=== PATIENT | female | born 1985 | race Caucasian/White ===

== ENCOUNTER 2016-08-16 11:38 | Emergency (ER) | payer BC ==
[2016-08-16 12:30] LABS: Appearance,Urine Clear (Clear); Bilirubin,Urine Negative (Negative); Glucose,Urine (UA) Negative (Negative); Ketones,Urine Negative (Negative); Leukocyte Esterase,Urine Negative (Negative); Nitrite,Urine Negative (Negative); PH, Urine 7.5 (5.0-8.0); Protein,Urine Negative (Negative); Specific Gravity,Urine 1.003 (1.001-1.035); UA Billing (MACRO vs. MICRO) CHEM; Urobilinogen,Urine <2.0 mg/dL (<2.0)
[2016-08-16] MEDS ORDERED: SODIUM CHLORIDE 0.9% 1,000 ML IV STA ×4 (13:23→18:09)
[2016-08-16 13:33] LABS: Glucose,Whole Blood 80 mg/dL (75-99)
--- NOTE | 2016-08-16 13:44 | ED ---
General Adult HPI - General Chief complaint: Recheck/Abnormal Lab/Rx Stated complaint: Feels like passing out/19wks Time Seen by Provider: 08/16/16 13:07 Source: patient, RN notes reviewed Mode of arrival: ambulatory Limitations: no limitations - History of Present Illness Initial comments: Patient is a G2, P1 30-year-old female who is 19 weeks by a son, who presents emergency room today with a chief complaint feeling lightheaded earlier today. She does admit that she was at work sitting at her desk. She states that she began feeling a numbness sensation to her left hand and right foot. She states that she noticed that she began feeling somewhat lightheaded. She states she had a strange feeling to her throat where she felt like it was closing on her. She states symptoms seem to be improving she's been here to the emergency room. She states her is no new medications. No new foods or contacts that she is aware of. Patient states never had similar symptoms in the past. Patient denies any other complaints currently. Patient denies any recent fever, chills, shortness of breath, chest pain, back pain, abdominal pain , nausea or vomiting, dysuria or hematuria, constipation or diarrhea, visual changes, or any other complaints. - Related Data Home Medications Medication Instructions Recorded Confirmed Pediatric Multivit Comb #25/FA 2 tab PO DAILY 08/16/16 08/16/16 [Flintstones Multivit Chew Tab] Sertraline HCl [Zoloft] 25 mg PO HS 08/16/16 08/16/16 Previous Rx's Medication Instructions Recorded Meclizine [Antivert] 25 mg PO DAILY 10 Days 08/16/16 Allergies Allergy/AdvReac Type Severity Reaction Status Date / Time tramadol Allergy Unknown Verified 08/16/16 13:07 Review of Systems ROS Statement: Those systems with pertinent positive or pertinent negative responses have been documented in the HPI. ROS Other: All systems not noted in ROS Statement are negative. Past Medical History Past Medical History: No Reported History Additional Past Medical History / Comment(s): headaches History of Any Multi-Drug Resistant Organisms: None Reported Additional Past Surgical History / Comment(s): breast reduction Past Psychological History: No Psychological Hx Reported Smoking Status: Never smoker Past Alcohol Use History: Occasional Past Drug Use History: None Reported General Exam - General Exam Comments Initial Comments: General: The patient is awake and alert, in no distress, and does not appear acutely ill. Eye: Pupils are equal, round and reactive to light, extra-ocular movements are intact. No nystagmus. There is normal conjunctiva bilaterally. No signs of icterus. Ears, nose, mouth and throat: There are moist mucous membranes and no oral lesions. Neck: The neck is supple, there is no tenderness or JVD. Cardiovascular: There is a regular rate and rhythm. No murmur, rub or gallop is appreciated. Respiratory: Lungs are clear to auscultation, respirations are non-labored, breath sounds are equal. No wheezes, stridor, rales, or rhonchi. Gastrointestinal: Soft, non-distended, non-tender abdomen without masses or organomegaly noted. There is no rebound or guarding present. No CVA tenderness. Bowel sounds are unremarkable. Musculoskeletal: Normal ROM, no tenderness. Strength 5/5. Sensation intact. Pulses equal bilaterally 2+. Neurological: A&O x 3. CN II-XII intact, There are no obvious motor or sensory deficits. Coordination appears grossly intact. Speech is normal. Normal finger nose test. Normal rapid alternating movements. Strength 5/5 bilaterally both upper and lower extremity's. Skin: Skin is warm and dry and no rashes or lesions are noted. Psychiatric: Cooperative, appropriate mood & affect, normal judgment. Limitations: no limitations Course Vital Signs 08/16/16 08/16/16 08/16/16 12:10 13:55 14:00 Temperature 98.9 F Pulse Rate 92 80 76 Respiratory 17 16 18 Rate Blood Pressure 131/77 101/65 91/62 O2 Sat by Pulse 99 100 100 Oximetry 08/16/16 08/16/16 08/16/16 14:30 15:04 17:00 Temperature Pulse Rate 78 68 88 Respiratory 18 16 16 Rate Blood Pressure 88/53 93/58 99/61 O2 Sat by Pulse 100 100 100 Oximetry 08/16/16 08/16/16 18:02 19:21 Temperature Pulse Rate 82 72 Respiratory 16 16 Rate Blood Pressure 95/58 102/59 O2 Sat by Pulse 99 100 Oximetry Medical Decision Making - Medical Decision Making The patient reexamined at this time shows no signs of distress. Patient's labs been reviewed. Patient was given both potassium and magnesium here in the emergency room as her lab values weren't lower end of normal. This did make some improvement with her symptoms. She states she is feeling better here in the emergency room after Antivert. She states that the symptoms seem to be worse when she rotates her head to the left and right. Case was discussed and seen by attending physician Dr. Harris. He did discuss case with her [facility] Dr. Wylie states she can follow-up the office with him. She does admit that she has a scheduled appointment next week. She is advised to call the office tomorrow to see if they need to move his appointment up. Patient heart tones 140s here in the emergency room. No vaginal bleeding or discharge. At this time patient will be discharged home. She states understanding and is in agreement. Patient advised return if any symptoms increase worsen or for any other concerns. - Lab Data Result diagrams: 08/16/16 13:45 08/16/16 13:45 Lab Results 08/16/16 08/16/16 08/16/16 Range/Units 12:15 13:32 13:45 WBC 6.4 (3.8-10.6) k/uL RBC 3.64 L (3.80-5.40) m/uL Hgb 11.8 (11.4-16.0) gm/dL Hct 33.9 L (34.0-46.0) % MCV 93.1 (80.0-100.0) fL MCH 32.6 (25.0-35.0) pg MCHC 35.0 (31.0-37.0) g/dL RDW 13.3 (11.5-15.5) % Plt Count 230 (150-450) k/uL Neutrophils % 73 % Lymphocytes % 20 % Monocytes % 4 % Eosinophils % 1 % Basophils % 0 % Neutrophils # 4.7 (1.3-7.7) k/uL Lymphocytes # 1.3 (1.0-4.8) k/uL Monocytes # 0.3 (0-1.0) k/uL Eosinophils # 0.1 (0-0.7) k/uL Basophils # 0.0 (0-0.2) k/uL Sodium (137-145) mmol/L Potassium (3.5-5.1) mmol/L Chloride (98-107) mmol/L Carbon Dioxide (22-30) mmol/L Anion Gap mmol/L BUN (7-17) mg/dL Creatinine (0.52-1.04) mg/dL Est GFR (MDRD) Af Amer (>60 ml/min/1.73 sqM) Est GFR (MDRD) Non-Af (>60 ml/min/1.73 sqM) Glucose (74-99) mg/dL POC Glucose (mg/dL) 80 (75-99) mg/dL POC Glu Labor Utilization Superintendent ID Izzy German Calcium (8.4-10.2) mg/dL Magnesium (1.6-2.3) mg/dL Total Bilirubin (0.2-1.3) mg/dL AST (14-36) U/L ALT (9-52) U/L Alkaline Phosphatase (38-126) U/L Total Protein (6.3-8.2) g/dL Albumin (3.5-5.0) g/dL Urine Color Light Yellow Urine Appearance Clear (Clear) Urine pH 7.5 (5.0-8.0) Ur Specific Outlook 1.003 (1.001-1.035) Urine Protein Negative (Negative) Urine Glucose (UA) Negative (Negative) Urine Ketones Negative (Negative) Urine Blood Negative (Negative) Urine Nitrate Negative (Negative) Urine Bilirubin Negative (Negative) Urine Urobilinogen <2.0 (<2.0) mg/dL Ur Leukocyte Esterase Negative (Negative) 08/16/16 08/16/16 Range/Units 13:45 13:45 WBC (3.8-10.6) k/uL RBC (3.80-5.40) m/uL Hgb (11.4-16.0) gm/dL Hct (34.0-46.0) % MCV (80.0-100.0) fL MCH (25.0-35.0) pg MCHC (31.0-37.0) g/dL RDW (11.5-15.5) % Plt Count (150-450) k/uL Neutrophils % % Lymphocytes % % Monocytes % % Eosinophils % % Basophils % % Neutrophils # (1.3-7.7) k/uL Lymphocytes # (1.0-4.8) k/uL Monocytes # (0-1.0) k/uL Eosinophils # (0-0.7) k/uL Basophils # (0-0.2) k/uL Sodium 137 (137-145) mmol/L Potassium 3.9 (3.5-5.1) mmol/L Chloride 106 (98-107) mmol/L Carbon Dioxide 24 (22-30) mmol/L Anion Gap 7 mmol/L BUN 6 L (7-17) mg/dL Creatinine 0.52 (0.52-1.04) mg/dL Est GFR (MDRD) Af Amer >60 (>60 ml/min/1.73 sqM) Est GFR (MDRD) Non-Af >60 (>60 ml/min/1.73 sqM) Glucose 78 (74-99) mg/dL POC Glucose (mg/dL) (75-99) mg/dL POC Glu Labor Utilization Superintendent ID Calcium 8.8 (8.4-10.2) mg/dL Magnesium 1.9 (1.6-2.3) mg/dL Total Bilirubin 0.3 (0.2-1.3) mg/dL AST 23 (14-36) U/L ALT 37 (9-52) U/L Alkaline Phosphatase 39 (38-126) U/L Total Protein 6.3 (6.3-8.2) g/dL Albumin 3.5 (3.5-5.0) g/dL Urine Color Urine Appearance (Clear) Urine pH (5.0-8.0) Ur Specific Outlook (1.001-1.035) Urine Protein (Negative) Urine Glucose (UA) (Negative) Urine Ketones (Negative) Urine Blood (Negative) Urine Nitrate (Negative) Urine Bilirubin (Negative) Urine Urobilinogen (<2.0) mg/dL Ur Leukocyte Esterase (Negative) Disposition Clinical Impression: Lightheaded Disposition: HOME SELF-CARE Condition: Good Instructions: Lightheadedness (ED) Additional Instructions: Please use meclizine as prescribed and follow-up with the [facility] over the next 2 days as discussed. Please return here to the emergency room if any symptoms increase worsen or for any other concerns. Prescriptions: Meclizine [Antivert] 25 mg PO DAILY 10 Days Referrals: Laurent Forte MD [Primary Care Provider] - 1-2 days Juan Antonio Dozier MD [STAFF PHYSICIAN] - 1-2 days Time of Disposition: 19:31
[2016-08-16 14:17] LABS: Basophils % (A) 0 %; CHCM 35.7; Eosinophils # (A) 0.1 k/uL (0-0.7); Eosinophils % (A) 1 %; HCT 33.9 % (34.0-46.0); HDW 2.65; HGB 11.8 gm/dL (11.4-16.0); Luc # (Auto) 0.05; Luc % (Auto) 1; Lymphocytes # (A) 1.3 k/uL (1.0-4.8); Lymphocytes % (A) 20 %; MCH 32.6 pg (25.0-35.0); MCV 93.1 fL (80.0-100.0); Monocytes # (A) 0.3 k/uL (0-1.0); Monocytes % (A) 4 %; Neutrophils # (A) 4.7 k/uL (1.3-7.7); Neutrophils % (A) 73 %; RBC 3.64 m/uL (3.80-5.40); RDW 13.3 % (11.5-15.5); WBC 6.4 k/uL (3.8-10.6); WBC (Perox) 7.13
[2016-08-16 14:27] LABS: ALT 37 U/L (9-52); AST 23 U/L (14-36); Alkaline Phosphatase 39 U/L (38-126); Anion Gap 7 mmol/L; Blood Urea Nitrogen 6 mg/dL (7-17); Calcium 8.8 mg/dL (8.4-10.2); Carbon Dioxide 24 mmol/L (22-30); Chloride 106 mmol/L (98-107); Glucose 78 mg/dL (74-99); Non-African American GFR(MDRD) >60 (>60 ml/min/1.73 sqM); Potassium 3.9 mmol/L (3.5-5.1); Sodium 137 mmol/L (137-145); Total Bilirubin 0.3 mg/dL (0.2-1.3); Total Protein 6.3 g/dL (6.3-8.2)
[2016-08-16 15:05] VITALS: RESP 16
[2016-08-16] MEDS ORDERED: MAGNESIUM SULFATE-D5W PMX 1 GM in DEXTROSE/WATER 1 100ML.BAG IVPB ONE (16:25)
[2016-08-16] MEDS ORDERED: POTASSIUM CHLORIDE ER 20 MEQ TAB.ER PO STA (18:08)
[2016-08-16] MEDS ORDERED: MECLIZINE 12.5 MG TAB PO STA (18:21)
[2016-08-16 19:57] VITALS: BP 107/67; PULSE 89; TEMP 97.6
== END 2016-08-16 19:52 | disposition home or self-care (01) ==
LOC: EC 11:38
DX: O26.892 Other specified pregnancy related conditions, second trimester (principal); R42 Dizziness and giddiness; Z3A.19 19 weeks gestation of pregnancy; Z79.899 Other long term (current) drug therapy
CPT/HCPCS: 36415; 93005; 80053; 83735; 85025; 81003; 87086; 99284; 96365; 96361; J3475

== ENCOUNTER 2017-01-03 06:15 | Inpatient (IN) | payer BC ==
[2017-01-03] MEDS ORDERED: TERBUTALINE 1 MG/ML VIAL SQ PRN (06:44)
[2017-01-03] MEDS ORDERED: METHYLERGONOVINE 0.2 MG/ML 1 ML AMP IM PRN (06:44)
[2017-01-03] MEDS ORDERED: LIDOCAINE 1% (PF) 10 MG/ML (30 ML SDV) SQ PRN (06:44)
[2017-01-03] MEDS ORDERED: CARBOPROST TROMETHAMINE 250 MCG/ML 1 ML AMP IM PRN (06:44)
[2017-01-03] MEDS ORDERED: OXYTOCIN 10 UNIT/ML 1 ML VIAL IM PRN (06:44)
[2017-01-03] MEDS ORDERED: OXYTOCIN 20 UNITS/1000 ML NS 1,000 ML IV SCH (06:45)
[2017-01-03 06:50] VITALS: BMI 29.5
[2017-01-03 06:51] LABS: Basophils % (A) 0 %; CH 34.4; Eosinophils # (A) 0.2 k/uL (0-0.7); Eosinophils % (A) 3 %; HCT 35.9 % (34.0-46.0); HDW 2.94; HGB 12.7 gm/dL (11.4-16.0); Luc # (Auto) 0.09; Luc % (Auto) 1; Lymphocytes # (A) 1.8 k/uL (1.0-4.8); Lymphocytes % (A) 27 %; MCH 33.2 pg (25.0-35.0); MCHC 35.5 g/dL (31.0-37.0); MCV 93.4 fL (80.0-100.0); Monocytes # (A) 0.3 k/uL (0-1.0); Monocytes % (A) 4 %; Neutrophils # (A) 4.2 k/uL (1.3-7.7); Neutrophils % (A) 64 %; RBC 3.84 m/uL (3.80-5.40); RDW 13.1 % (11.5-15.5); WBC 6.5 k/uL (3.8-10.6); WBC (Perox) 7.03
[2017-01-03] MEDS: LACTATED RINGERS 1,000 ML IV SCH ×2 (07:10→13:31)
[2017-01-03] MEDS ORDERED: BUTORPHANOL 1 MG/ML 1 ML VIAL IV PRN (08:40)
--- NOTE | 2017-01-03 08:40 | P.HPOB ---
History of Present Illness H&P Date: 01/03/17 Chief Complaint: 39-3/7 weeks, elective induction The patient is a 31-year-old 3 para 1011 admitted at 39-3/7 weeks as established by last menstrual period and confirmed by 19 week ultrasound. She is admitted for elective induction with all signs reassuring and a favorable cervix. Her has been entirely uncomplicated and group B strep status is negative. Obstetrical history 3 para 1011 with 1 term vaginal delivery without complications she also had one early miscarriage not requiring D&C. Laboratory workup demonstrates a blood type of A+ with a negative antibody screen. Rubella status is immune. All other laboratory workup was within normal limits. One hour Glucola was normal and group B strep status is negative. Gynecologic history is unremarkable with no history of any infections to include STDs. Review of Systems Review of systems is confined to history of present illness. Past Medical History Past Medical History: Asthma Additional Past Medical History / Comment(s): headaches History of Any Multi-Drug Resistant Organisms: None Reported Additional Past Surgical History / Comment(s): breast reduction Past Anesthesia/Blood Transfusion Reactions: No Reported Reaction Past Psychological History: Anxiety Smoking Status: Never smoker Past Alcohol Use History: Occasional Past Drug Use History: None Reported - Past Family History Father History Unknown: Yes Medications and Allergies Home Medications Medication Instructions Recorded Confirmed Type Pedi Multivit No.25/Folic Acid 2 tab PO DAILY 08/16/16 01/03/17 History [Flintstones Multivit Chew Tab] Sertraline HCl [Zoloft] 25 mg PO HS 08/16/16 01/03/17 History Allergies Allergy/AdvReac Type Severity Reaction Status Date / Time tramadol Allergy Unknown Verified 01/03/17 06:41 Exam - Vital Signs Vital signs: Vital Signs Temp Pulse Resp Pulse Ox 01/03/17 06:40 99.1 F 99 18 98 Intake and Output 01/02/17 01/03/17 01/03/17 22:59 06:59 14:59 Other: Weight 75.75 kg In general, this is a well-developed, well-nourished white female in no acute distress. Her heart has a regular rhythm and rate without murmur. Her lungs are clear to auscultation bilaterally in all mascorro. Her abdomen is gravid, nondistended, has normal active bowel sounds, is soft, nontender, and without any palpable masses aside from uterine fundus. Her extremities are without any cyanosis, clubbing, or edema and are nontender to palpation bilaterally. Digital cervical examination demonstrates her cervix to be 2-3 cm dilated, 50% effaced, the vertex in presentation at -2 station. Artificial rupture of membranes is carried out demonstrating clear fluid. Results Result Diagrams: 01/03/17 06:40 Assessment and Plan (1) Term Status: Acute Plan: The patient has been admitted for elective induction of labor. She is aware of the potential slightly increased risk for delivery under elective circumstances. Pitocin augmentation has been started and she has undergone artificial rupture of membranes Chapis she will continue to have close maternal and surveillance and expectant management will be practiced. She is a good candidate for either IV or epidural analgesia, whichever she may choose.
[2017-01-03] MEDS ORDERED: fentaNYL (PF) 50 MCG/ML 5 ML AMP ONE (13:01)
[2017-01-03] MEDS ORDERED: SODIUM CHLORIDE 0.9% 100 ML BAG ONE (13:01)
[2017-01-03] MEDS ORDERED: BUPIVACAINE (PF) 0.25% 30 ML VIAL ONE (13:01)
[2017-01-03] MEDS ORDERED: ACETAMINOPHEN TAB 325 MG TAB PO PRN (17:08)
[2017-01-03] MEDS ORDERED: diphenhydrAMINE 50 MG/ML 1 ML VIAL IVP PRN ×2 (17:08)
[2017-01-03] MEDS ORDERED: BENZOCAINE SPRAY 57GM TOPICAL PRN (17:08)
[2017-01-03] MEDS ORDERED: diphenhydrAMINE 25 MG CAP PO PRN (17:08)
[2017-01-03] MEDS ORDERED: ZOLPIDEM 5 MG TAB PO PRN (17:08)
[2017-01-03] MEDS ORDERED: Acetaminophen-Codeine 300-30mg TAB PO PRN (17:08)
[2017-01-03] MEDS ORDERED: WITCH HAZEL 1 EACH MED..PAD TOPICAL PRN (17:08)
[2017-01-03] MEDS ORDERED: diphenhydrAMINE 50 MG CAP PO PRN (17:08)
[2017-01-03] MEDS ORDERED: SIMETHICONE 80 MG CHEWABLE PO PRN (17:08)
[2017-01-03] MEDS ORDERED: HYDROCORTISONE 2.5% RECTAL CREAM 30 GM TUBE RECTAL PRN (17:08)
[2017-01-03] MEDS ORDERED: LANOLIN CREAM 5 GM TUBE TOPICAL PRN (17:08)
[2017-01-03] MEDS ORDERED: DIPH,PERTUS(ACELL)TETVAC-LF 0.5 ML VIAL IM ONE (17:09)
--- NOTE | 2017-01-03 17:12 | P.PROBDLV ---
Vaginal Delivery Note - . Vaginal Delivery Note: The patient is a 31-year-old 3 para 1011 admitted at 39-3/7 weeks for an elective induction of labor. She is admitted after an uncomplicated and with all signs reassuring. Her group B strep status is negative. On labor and delivery, she had Pitocin started followed by artificial rupture member is clear fluid. She made fairly rapid progress through the active phase of labor and progressed to complete. She pushed over the course of approximately 1 hour and 30 minutes to a normal spontaneous vaginal delivery of a viable 7 lbs. 13 oz. baby boy with Apgars of 9 at 1 minute and 9 at 5 minutes delivered in the direct occiput posterior position with nearly a brow presentation. The placenta was delivered spontaneously, intact, and grossly normal with a grossly normal three-vessel cord inserted approximately 5-6 cm from the margin of the placenta. There was a small accessory lobe present as well. A second degree midline episiotomy had been cut for the delivery and was repaired in standard fashion using 3-0 chromic catgut without difficulty. Estimated blood loss for the case was approximately 200 mL. There were no complications. All sponge, instrument, and needle counts were correct. Both mother and infant are resting comfortably in recovery.
[2017-01-03] MEDS: IBUPROFEN 600 MG TAB PO PRN (19:28)
[2017-01-03] MEDS: SENNOSIDES-DOCUSATE SODIUM 1 EACH TAB PO SCH (21:41)
[2017-01-03] MEDS: Acetaminophen-Codeine 300-30mg TAB PO PRN (21:42)
[2017-01-04] MEDS: Acetaminophen-Codeine 300-30mg TAB PO PRN (05:00)
[2017-01-04] MEDS: LACTATED RINGERS 1,000 ML IV SCH (05:09)
--- NOTE | 2017-01-04 08:49 | P.DS ---
Providers Date of admission: 01/03/17 06:29 Expected date of discharge: 01/04/17 Attending physician: Juan Antonio Dozier Primary care physician: Stated None - Discharge Diagnosis(es) (1) Term Current Visit: Yes Status: Acute (2) Normal spontaneous vaginal delivery Current Visit: Yes Status: Acute Hospital Course: The patient is a 31-year-old 3 para 1011 admitted at 39-3/7 weeks for elective induction. She is admitted with an uncomplicated and all signs reassuring. Group B strep status is negative. On labor and delivery, she had Pitocin started and underwent artificial rupture of membranes demonstrating clear fluid. She had an epidural catheter placed the onset of the active phase of labor. She made fairly steady progress through the active phase of labor to complete and then pushed to a normal spontaneous vaginal delivery of a viable 7 lbs. 13 oz. baby boy with Apgars of 9 at 1 minute and 9 at 5 minutes. Her course was unremarkable vital signs remaining stable and her temperature was afebrile throughout. She was deemed stable for discharge by day #1 was discharged home to follow-up in the office in 6 weeks' time routinely. Discharge instructions included calling for any significantly increased bleeding or foul-smelling lochia, significantly increased fever or abdominal pain, perineal complaints, breast complaints, or anything else that concerned her. She was additionally instructed to have nothing in the vagina for at least 6 weeks time to include intercourse. She understood her instructions and agrees to follow up as noted above. Discharge medications included continued vitamins as she has opted to breast- feed. She otherwise was to use [id number] analgesic pain medications as needed. Maternal blood type is A+ and rubella status is immune. Procedures: #1. Pitocin induction #2. Artificial rupture of membranes #3. Epidural analgesia #4. Normal spontaneous vaginal delivery #5. Second-degree midline episiotomy and repair Patient Condition at Discharge: Good Plan - Discharge Summary New Discharge Prescriptions: No Action Sertraline HCl [Zoloft] 25 mg PO HS Pedi Multivit No.25/Folic Acid [Flintstones Multivit Chew Tab] 2 tab PO DAILY Discharge Medication List Pedi Multivit No.25/Folic Acid [Flintstones Multivit Chew Tab] 2 tab PO DAILY [History] Sertraline HCl [Zoloft] 25 mg PO HS 08/16/16 [History] Follow up Appointment(s)/Referral(s): Juan Antonio Dozier MD [STAFF PHYSICIAN] - 6 Weeks Discharge Disposition: HOME SELF-CARE
[2017-01-04] MEDS: SENNOSIDES-DOCUSATE SODIUM 1 EACH TAB PO SCH (09:03)
[2017-01-04] MEDS: IBUPROFEN 600 MG TAB PO PRN (09:04)
[2017-01-04 09:19] VITALS: RESP 20
[2017-01-04 16:46] VITALS: BP 95/55; PULSE 91; TEMP 97.9
== END 2017-01-04 19:10 | disposition home or self-care (01) | DRG 775 ==
LOC: 4FBP 06:29
PROVIDERS: ADMIT Obstetrics & Gynecology; ATTEND Obstetrics & Gynecology
PROC: 10E0XZZ Delivery of Products of Conception, External Approach (ICD-10-PCS; principal; 2017-01-03)
PROC: 0KQM0ZZ Repair Perineum Muscle, Open Approach (ICD-10-PCS; 2017-01-03)
PROC: 10907ZC Drainage of Amniotic Fluid, Therapeutic from Products of Conception, Via Natural or Artificial Opening (ICD-10-PCS; 2017-01-03)
PROC: 3E033VJ Introduction of Other Hormone into Peripheral Vein, Percutaneous Approach (ICD-10-PCS; 2017-01-03)
PROC: 3E0234Z Introduction of Serum, Toxoid and Vaccine into Muscle, Percutaneous Approach (ICD-10-PCS; 2017-01-03)
PROC: 3E0S3NZ Introduction of Analgesics, Hypnotics, Sedatives into Epidural Space, Percutaneous Approach (ICD-10-PCS; 2017-01-03)
DX: O70.1 Second degree perineal laceration during delivery (principal); Z37.0 Single live birth; O99.344 Other mental disorders complicating childbirth; F41.9 Anxiety disorder, unspecified; O32.3XX0 Maternal care for face, brow and chin presentation, not applicable or unspecified; J45.909 Unspecified asthma, uncomplicated; O99.52 Diseases of the respiratory system complicating childbirth; O43.193 Other malformation of placenta, third trimester; Z3A.39 39 weeks gestation of pregnancy; Z79.899 Other long term (current) drug therapy; Z88.5 Allergy status to narcotic agent; Z23 Encounter for immunization
CPT/HCPCS: 85025; 88307; 90715

== ENCOUNTER 2019-09-18 11:47 | Outpatient (CLI) | payer BC ==
[2019-09-18 13:30] VITALS: BP 113/75; PULSE 104; RESP 16; TEMP 98.6
--- NOTE | 2019-10-06 11:32 | P.MSEPDOC ---
Presenting Problems - Arrival Data Date of Arrival on Unit: 09/18/19 Time of Arrival on Unit: 11:48 Mode of Transport: Ambulatory - Complaint OB-Reason for Admission/Chief Complaint: Headache Comment: pt arrived c/o a migrane H/A SINCE LAST NIGHT PT STATES SHE TOOK SOME TYLENOL LAST NIGHT AND PT STATES h/a is LESS INTENSE AT THIS TIME Medical History - Information : 3 Para: 2 Term: 2 : 0 Abortions: Spontaneous or Elective: 0 Number of Living Children: 2 - Gestational Age Gestational Age by RAFA (wks/days): 26 Weeks and 3 Days Review of Systems - Review of Systems Constitutional: No problems Breast: No problems ENT: No problems Cardiovascular: No problems Respiratory: No problems Gastrointestinal: No problems Genitourinary: No problems Musculoskeletal: No problems Neurological: No problems Skin: No problems Vital Signs - Temperature Temperature: 98.6 F Temperature Source: Oral - Pulse Right Brachial Pulse Rate: 104 Pulse Assessment Method: Automatic Cuff - Respirations Respiratory Rate: 16 Oxygen Delivery Method: Room Air - Blood Pressure Right Arm Blood Pressure: 113/75 Blood Pressure Mean: 87 Blood Pressure Source: Automatic Cuff Medical Screen Scoring (Pre) - Cervical Exam Dilation: Exam Deferred Effacement: Exam Deferred Membranes: Intact - Uterine Contractions Frequency: N/A Duration: N/A Intensity: N/A - Maternal Vital Signs Maternal Temperature: N/A Maternal Blood Pressure: N/A Signs of Preeclampsia: Headache = 1, Visual Disturbance = 1 Maternal Respirations: N/A - Maternal Trauma Maternal Trauma: N/A - Assessment - Baby A Baseline FHR: 140 Heart Rate - NICHD Category: Category I (Normal) = 0 NST: Reactive Position: N/A - Total Score - Baby A Total Score - Baby A: 2 - Total Score - Baby B Total Score - Baby B: 2 - Total Score - Baby C Total Score - Baby C: 2 - Level of Risk - Baby A Level of Risk - Baby A: Low (0-5) - Level of Risk - Baby B Level of Risk - Baby B: Low (0-5) - Level of Risk - Baby C Level of Risk - Baby C: Low (0-5) Physician Notification (Pre) - Physician Notified Physician Notified Date: 09/18/19 Physician Notified Time: 13:03 New Order Received: Yes - Notification Comment Comment: MAY DISCHARGE TO HOME WITH INSTRUCTIONS Disposition - Disposition OB Disposition: Discharge to home Discharge Date: 09/18/19 Discharge Time: 13:21 I agree with the RN Medical Screening Exam: Yes Risk & Benefit of care provided described in d/c instruction: Yes Diagnosis: RELATED CONDITIONS, UNSPECIFIED, SECOND TRIMESTER
== END 2019-09-18 13:21 | disposition home or self-care (01) ==
LOC: FBPOP 11:47
PROVIDERS: ATTEND Obstetrics & Gynecology
DX: O26.92 Pregnancy related conditions, unspecified, second trimester (principal); Z3A.26 26 weeks gestation of pregnancy
CPT/HCPCS: 99213

== ENCOUNTER → 2019-12-13 | Outpatient (CLI) | payer BC | END | disposition home or self-care (01) | LOC: LABWHC1 11:49 | PROVIDERS: ATTEND Obstetrics & Gynecology | DX: Z11.59 Encounter for screening for other viral diseases (principal) ==

== ENCOUNTER 2019-12-16 06:00 | Inpatient (IN) | payer BC ==
[2019-12-16] MEDS ORDERED: METHYLERGONOVINE 0.2 MG/ML 1 ML AMP IM PRN (06:49)
[2019-12-16] MEDS ORDERED: CARBOPROST TROMETHAMINE 250 MCG/ML 1 ML AMP IM PRN (06:49)
[2019-12-16] MEDS ORDERED: OXYTOCIN 10 UNIT/ML 1 ML VIAL IM PRN (06:49)
[2019-12-16] MEDS ORDERED: TERBUTALINE 1 MG/ML VIAL SQ PRN (06:49)
[2019-12-16] MEDS ORDERED: LIDOCAINE 0.5% (PF) 5 MG/ML (50 ML SDV) SQ PRN (06:49)
[2019-12-16 06:58] LABS: Basophils % (A) 1 %; Eosinophils # (A) 0.2 k/uL (0-0.7); Eosinophils % (A) 4 %; HCT 33.8 % (34.0-46.0); HGB 11.4 gm/dL (11.4-16.0); Lymphocytes # (A) 1.7 k/uL (1.0-4.8); Lymphocytes % (A) 29 %; MCH 31.3 pg (25.0-35.0); MCHC 33.8 g/dL (31.0-37.0); MCV 92.6 fL (80.0-100.0); Monocytes # (A) 0.3 k/uL (0-1.0); Monocytes % (A) 5 %; Neutrophils # (A) 3.4 k/uL (1.3-7.7); Neutrophils % (A) 59 %; Platelet Count 206 k/uL (150-450); RBC 3.65 m/uL (3.80-5.40); RDW 12.7 % (11.5-15.5); WBC 5.8 k/uL (3.8-10.6)
[2019-12-16] MEDS: LACTATED RINGERS 1,000 ML IV SCH ×2 (06:59→13:29)
[2019-12-16] MEDS ORDERED: OXYTOCIN 30 UNITS/500 ML NS 30 UNIT in SALINE 1 500ML.BAG IV SCH (07:00)
[2019-12-16] MEDS ORDERED: BUTORPHANOL 1 MG/ML 1 ML VIAL IV PRN (11:08)
--- NOTE | 2019-12-16 11:53 | P.HPOB ---
History of Present Illness H&P Date: 12/16/19 Chief Complaint: 39 and one sevenths weeks, elective induction of labor The patient is a 34-year-old 4 para 2012 who is admitted at 39 and one sevenths weeks as established by last menstrual period and confirmed by 9 week ultrasound. She is admitted for elective induction of labor with a relatively favorable cervix. Her has been entirely uncomplicated and group B strep status is negative. Obstetrical history: 4 para 2012 with current statistics listed in history present illness. EDC of 12/22/2019 was established by last menstrual period and confirmed by 9 week ultrasound. Laboratory workup demonstrates a blood type of A+ with a negative antibody screen. Rubella status is immune. The remainder of laboratory workups within normal limits. One hour Glucola was normal and group B strep status is negative. Gynecologic history: Unremarkable with no history of any infections to include STDs. Review of Systems Review of systems is confined to history of present illness. Past Medical History Past Medical History: Asthma Additional Past Medical History / Comment(s): headaches History of Any Multi-Drug Resistant Organisms: None Reported Additional Past Surgical History / Comment(s): breast reduction Past Anesthesia/Blood Transfusion Reactions: No Reported Reaction Past Psychological History: Anxiety Smoking Status: Former smoker Past Alcohol Use History: Occasional Past Drug Use History: None Reported - Past Family History Father History Unknown: Yes Medications and Allergies Home Medications Medication Instructions Recorded Confirmed Type Pedi Multivit No.25/Folic Acid 2 tab PO DAILY 08/16/16 12/16/19 History [Flintstones Multivit Chew Tab] Sertraline HCl [Zoloft] 25 mg PO HS 08/16/16 12/16/19 History Allergies Allergy/AdvReac Type Severity Reaction Status Date / Time tramadol Allergy Unknown Verified 12/16/19 06:48 Exam Vital Signs Temp Pulse Resp BP Pulse Ox 12/16/19 06:43 97.8 F 96 18 110/64 98 Intake and Output 12/15/19 12/16/19 12/16/19 22:59 06:59 14:59 Other: Weight 72.575 kg In general, this is a well-developed, well-nourished white female in no acute distress heart has a regular rhythm and rate without murmur. Her lungs are clear to auscultation bilaterally in all mascorro. Her abdomen is gravid, nondistended, has normal active bowel sounds, soft, nontender, and without any palpable masses aside from uterine fundus. Her extremities are without any cyanosis, clubbing, or edema and are nontender to palpation bilaterally. Digital cervical examination on straights her cervix to be 2 cm dilated, 50% effaced, the vertex in presentation at -2 station. Artificial rupture of membranes is carried out demonstrating clear fluid. Results Result Diagrams: 12/16/19 06:53 Abnormal Lab Results - Last 24 Hours (Table) 12/16/19 Range/Units 06:53 RBC 3.65 L (3.80-5.40) m/uL Hct 33.8 L (34.0-46.0) % Assessment and Plan (1) Term Current Visit: Yes Status: Acute Code(s): Z34.80 - ENCOUNTER FOR SUPRVSN OF NORMAL , UNSP TRIMESTER SNOMED Code(s): 34824661 Plan: The patient is admitted for elective induction of labor and has had artificial rupture of membranes carried out as well as Pitocin augmentation started. She will have close maternal and surveillance and expectant management will be practice. She is a good candidate for either IV or epidural analgesia, whichever she may choose.
[2019-12-16] MEDS ORDERED: ROPIVACAINE 100 MG, fentaNYL (PF) 200 MCG in SODIUM CHLORIDE 0.9% 76 ML EPIDURAL ONE (14:34)
[2019-12-16] MEDS ORDERED: WITCH HAZEL 1 EACH MED..PAD TOPICAL PRN (15:27)
[2019-12-16] MEDS ORDERED: HYDROcodone/APAP 7.5-325MG 1 EACH TAB PO PRN (15:27)
[2019-12-16] MEDS ORDERED: SIMETHICONE 80 MG CHEWABLE PO PRN (15:27)
[2019-12-16] MEDS ORDERED: ZOLPIDEM 5 MG TAB PO PRN (15:27)
[2019-12-16] MEDS ORDERED: ACETAMINOPHEN TAB 325 MG TAB PO PRN (15:27)
[2019-12-16] MEDS ORDERED: HYDROcodone/APAP 5-325MG 1 EACH TAB PO PRN (15:27)
[2019-12-16] MEDS ORDERED: diphenhydrAMINE 50 MG CAP PO PRN (15:27)
[2019-12-16] MEDS ORDERED: diphenhydrAMINE 25 MG CAP PO PRN (15:27)
[2019-12-16] MEDS ORDERED: LANOLIN CREAM 5 GM TUBE TOPICAL PRN (15:27)
[2019-12-16] MEDS ORDERED: BENZOCAINE/MENTHOL SPRAY 1 GM/SPRAY AEROSOL TOPICAL PRN (15:27)
[2019-12-16] MEDS ORDERED: diphenhydrAMINE 50 MG/ML 1 ML VIAL IVP PRN ×2 (15:27)
[2019-12-16] MEDS ORDERED: HYDROCORTISONE 2.5% RECTAL CREAM 30 GM TUBE RECTAL PRN (15:27)
[2019-12-16] MEDS ORDERED: OXYTOCIN 20 UNITS/1000 ML NS 1,000 ML IV SCH (15:30)
--- NOTE | 2019-12-16 15:31 | P.PROBDLV ---
Vaginal Delivery Note - . Vaginal Delivery Note: The patient is a 34-year-old 4 para 2012 admitted at 39 and one sevenths weeks by good dating parameters for elective induction of labor. She is admitted with all signs reassuring and following an entirely uncomplicated . On labor and delivery, she had Pitocin started followed by artificial rupture of membranes for clear fluid. She made average progress through the latent phase of labor and had an epidural catheter placed for analgesia around the onset of the active phase of labor. She then made very rapid progress through the active phase of labor to complete and pushed over the course of 1 contraction to a normal spontaneous vaginal delivery of a viable 7 lbs. 9 oz. baby boy with Apgars of 9 at 1 minute and 9 at 5 minutes delivered in the left occiput anterior position. The placenta was delivered spontaneously, intact, and grossly normal with a grossly normal three-vessel cord inserted approximate 4 cm from the margin of the placental disc. There was a very small first-degree perineal skin split which was repaired with a single f [id number] stitch of 3-0 chromic catgut as it was gaping to some extent. Estimated blood loss for the entire case was approximately 100 mL. There are no complications. All sponge, instrument, and needle counts were correct. Both mother and are resting comfortably in recovery.
[2019-12-16] MEDS: IBUPROFEN 600 MG TAB PO PRN (19:39)
[2019-12-16] MEDS: SENNOSIDES-DOCUSATE SODIUM 1 EACH TAB PO SCH (20:47)
[2019-12-17] MEDS: IBUPROFEN 600 MG TAB PO PRN ×2 (08:28→19:48)
[2019-12-17] MEDS: SENNOSIDES-DOCUSATE SODIUM 1 EACH TAB PO SCH ×2 (08:29→21:24)
--- NOTE | 2019-12-17 08:39 | P.DS ---
Providers Date of admission: 12/16/19 06:35 Expected date of discharge: 12/17/19 Attending physician: Juan Antonio Dozier Primary care physician: Stated None - Discharge Diagnosis(es) (1) Term Current Visit: Yes Status: Acute (2) Normal spontaneous vaginal delivery Current Visit: Yes Status: Acute Hospital Course: The patient is a 34-year-old 4 para 2012 admitted at 39 and one sevenths weeks for an elective induction of labor with all signs reassuring. Her has been uncomplicated and group B strep status is negative. On labor and delivery, she had Pitocin started followed by artificial rupture of membranes for clear fluid. She had an epidural catheter placed her on the onset of the active phase of labor and then progressed very rapidly to complete. She pushed to a normal spontaneous vaginal delivery of a viable 7 lbs. 9 oz. baby boy with Apgars of 9 at 1 minute and 9 at 5 minutes. Her course was unremarkable with vital signs remaining stable and her temperature was afebrile throughout. She was deemed stable for discharge on day #1 was discharged home to follow-up in the office in 6 weeks' time routinely. Discharge instructions included calling for any significantly increased bleeding or foul-smelling lochia, significantly increased fever or abdominal pain, perineal complaints, breast complaints, or anything else that concerned her. She was additionally instructed to have nothing in the vagina for at least 6 weeks time to include intercourse. She understood all of her instructions and agrees to follow up as noted above. Discharge medications included continued vitamins as she has opted to breast-feed as well as [id number] analgesic pain medications. Maternal blood type is A+ and rubella status is immune. Procedures: #1. Pitocin induction #2. Artificial rupture of membranes #3. Epidural analgesia #4. Normal spontaneous vaginal delivery #5. Repair of first-degree perineal laceration Patient Condition at Discharge: Good Plan - Discharge Summary New Discharge Prescriptions: No Action Sertraline HCl [Zoloft] 25 mg PO HS Pedi Multivit No.25/Folic Acid [Flintstones Multivit Chew Tab] 2 tab PO DAILY Discharge Medication List Pedi Multivit No.25/Folic Acid [Flintstones Multivit Chew Tab] 2 tab PO DAILY 08/16/16 [History] Sertraline HCl [Zoloft] 25 mg PO HS 08/16/16 [History] Follow up Appointment(s)/Referral(s): Juan Antonio Dozier MD [STAFF PHYSICIAN] - 6 Weeks Discharge Disposition: HOME SELF-CARE
[2019-12-18] MEDS ORDERED: LORATADINE-PSEUDOEPH 5-120 MG 1 EACH TAB.ER.12H PO PRN (01:30)
[2019-12-18] MEDS ORDERED: FLUTICASONE 50MCG/SPRAY NASAL 16GM EA NOSTRIL PRN (01:31)
[2019-12-18] MEDS: IBUPROFEN 600 MG TAB PO PRN (05:17)
[2019-12-18 08:15] VITALS: BP 103/62; PULSE 83; RESP 14; TEMP 98.2
[2019-12-18] MEDS: SENNOSIDES-DOCUSATE SODIUM 1 EACH TAB PO SCH (08:16)
== END 2019-12-18 09:28 | disposition home or self-care (01) | DRG 807 ==
LOC: 4FBP 06:35
PROVIDERS: ADMIT Obstetrics & Gynecology; ATTEND Obstetrics & Gynecology
PROC: 10907ZC Drainage of Amniotic Fluid, Therapeutic from Products of Conception, Via Natural or Artificial Opening (ICD-10-PCS; principal; 2019-12-16)
PROC: 3E0R3BZ Introduction of Anesthetic Agent into Spinal Canal, Percutaneous Approach (ICD-10-PCS; principal; 2019-12-16)
PROC: 00HU33Z Insertion of Infusion Device into Spinal Canal, Percutaneous Approach (ICD-10-PCS; principal; 2019-12-16)
PROC: 0HQ9XZZ Repair Perineum Skin, External Approach (ICD-10-PCS; principal; 2019-12-16)
PROC: 3E033VJ Introduction of Other Hormone into Peripheral Vein, Percutaneous Approach (ICD-10-PCS; principal; 2019-12-16)
PROC: 10E0XZZ Delivery of Products of Conception, External Approach (ICD-10-PCS; principal; 2019-12-16)
DX: O70.0 First degree perineal laceration during delivery (principal); Z37.0 Single live birth; O99.52 Diseases of the respiratory system complicating childbirth; J45.909 Unspecified asthma, uncomplicated; Z3A.39 39 weeks gestation of pregnancy; Z79.899 Other long term (current) drug therapy; Z86.59 Personal history of other mental and behavioral disorders; Z87.891 Personal history of nicotine dependence
CPT/HCPCS: 85025; 86850; 86900; 86901

== ENCOUNTER → 2020-06-24 | Outpatient (CLI) | payer BC ==
--- NOTE | 2020-06-24 14:41 | XR ---
EXAMINATION TYPE: XR chest 2V DATE OF EXAM: 06/24/2020 COMPARISON: 04/13/2012 INDICATION: Asthma acute exacerbation TECHNIQUE: Frontal and lateral views of the chest are obtained. FINDINGS: The heart size is normal. The pulmonary vasculature is normal. The lungs are clear. IMPRESSION: 1. No acute pulmonary process.
== END | disposition home or self-care (01) ==
LOC: RADXRMAIN 14:18
PROVIDERS: ATTEND Otolaryngology
DX: Z09 Encounter for follow-up examination after completed treatment for conditions other than malignant neoplasm (principal); Z87.09 Personal history of other diseases of the respiratory system
CPT/HCPCS: 71046

== ENCOUNTER → 2020-08-24 | Outpatient (CLI) | payer BC | END | disposition home or self-care (01) | LOC: LABWHC1 10:52 | PROVIDERS: ATTEND Internal Medicine Critical Care Medicine | DX: J45.909 Unspecified asthma, uncomplicated (principal) | CPT/HCPCS: 36415; 82785; 85008 ==

== ENCOUNTER → 2021-01-04 | Outpatient (CLI) | payer BC ==
--- NOTE | 2021-01-04 09:07 | CT ---
EXAMINATION TYPE: CT sinus wo con DATE OF EXAM: 01/04/2021 COMPARISON: 04/13/2012 HISTORY: 35-year-old female J32.9, chronic sinusitis, congestion, pressure, headaches, drainage CT DLP: 644 mGycm Automated exposure control for dose reduction was used. TECHNIQUE: Noncontrast axial views of the paranasal sinuses were obtained. Coronal reconstructions pe rformed. FINDINGS: PARANASAL SINUSES: Lobulated polyps or mucosal retention cyst along the floor of the right maxillary sinus measuring up to 2.8 cm. Additional mild mucosal thickening in the bilateral maxillary sinuses with left greater th an right air fluid levels. Mild mucosal thickening and air-fluid levels continuing to be bilateral sphenoid sinuses. Mild mucosal thickening frontal sinuses and moderate thickening throughout the ethmoid air cells. Reactive rylan- osteogenesis is not seen. There is no destruction of the osseous flores of the paranasal sinuses. THE NASAL CAVITY: There is opacification which extends to the bilateral maxillary infundibula. No significant nasal septal deviation. The imaged brain and orbits are normal in appearance. Visualized mastoid air cells and middle ear cavities are well pneumatized. Reformatted images confirm above findings. IMPRESSION: 1. Moderate chronic mucosal thickening right maxillary sinus and bilateral ethmoid air cells with janae yps or mucosal retention cysts in the right maxillary sinus measuring up to 2.8 cm. Additional scatte red mild mucosal thickening throughout. 2. Correlate for superimposed acute sinusitis given bilateral maxillary and sphenoid sinus air-fluid levels.
== END | disposition home or self-care (01) ==
LOC: RADCTMAIN 08:08
PROVIDERS: ATTEND Nurse Practitioner Family
DX: J01.00 Acute maxillary sinusitis, unspecified (principal); M27.40 Unspecified cyst of jaw
CPT/HCPCS: 70486

== ENCOUNTER → 2023-11-29 | Outpatient (CLI) | payer BC ==
--- NOTE | 2023-11-29 19:26 | MM ---
Reason for Exam: Screening (asymptomatic). Baseline mammogram. Patient History: Menarche at age 17. First Full-Term at age 24. Premenopausal. Patient has history of breast feeding. 2018, Bilateral Reduction. Maternal grandmother had ovarian cancer under age 50. Maternal aunt had breast cancer at or over age 50. Maternal aunt (bhavin) had breast cancer under age 50. Maternal aunt (bhavin) had breast cancer at or over age 50. Maternal aunt (bhavin) had breast cancer under age 50. Last menstrual period: 11/22/2023 Risk Values: Carmita 5 year model risk: 0.3%. NCI Lifetime model risk: 8.4%. Prior Study Comparison: Patient's first Mammogram. Tissue Density: The breasts are heterogeneously dense, which may obscure small masses. Findings: Analyzed By CAD. No significant mass, suspicious microcalcification, or other discrete abnormality is seen. Overall Assessment: Negative, BI-RAD 1 Management: Screening Mammogram of both breasts in 1 year. . Patient should continue monthly self-breast exams. A clinical breast exam by your physician is recommended on an annual basis. This exam should not preclude additional follow-up of suspicious palpable abnormalities. Note on Carmita scores and lifetime risk: 1. A Carmita score greater than 3% is considered moderate risk. If this is the case, consider specialist referral to assess eligibility for a risk reducing agent. 2. If overall lifetime risk for the development of breast cancer is 20% or higher, the patient may qualify for future screening with alternating mammogram and breast MRI. Electronically signed and approved by: Taylor Anand M.D. Radiologist
== END | disposition home or self-care (01) ==
LOC: RADMAMWWP 07:20
PROVIDERS: ATTEND Obstetrics & Gynecology
DX: Z12.31 Encounter for screening mammogram for malignant neoplasm of breast (principal); Z80.3 Family history of malignant neoplasm of breast
CPT/HCPCS: 77063; 77067